=== PATIENT | male | born 1945 | race Caucasian/White ===

== ENCOUNTER 2024-12-13 10:41 | Emergency (ER) | payer MEDICARE, SELFPAY ==
--- OUTSIDE RECORDS SUMMARY | 2024-11-14 12:30 | XMS_ITS | Encounter Summary ---
Author Organization [facility] Address [address] [place] [address] Care Team Providers Care Metal Trim Erector Name Role Phone Sarthak Dominguez M.D. Primary Care Provider [phone] Reason for Visit * Reason Onset Date Comments Pre-visit Intake 11/14/2024 Encounter Details Date Type Department Care Team (Latest Contact Info) Description 11/14/2024 12:30 PM CDT Clinical Communication Virtual Review in [address] [address] Pre-visit Intake Social History Tobacco Use Types Packs/Day Years Used Date Smoking Tobacco: Former Cigarettes Passive Smoke Exposure: Past Smokeless Tobacco: Current Snuff Alcohol Use Standard Drinks/Week Comments Not Currently 0 (1 standard drink = 0.6 oz pur e alcohol) Humiliation, Afraid, Rape, and Kick questionnair e Answer Date Recorded Within the last year, have y ou been afraid of your partner or ex-partner? No 03/18/2021 Within the last year, have y ou been humiliated or emotionally abused in other ways by your partner or ex-partner? No Within the last year, have y ou been kicked, hit, slapped, or otherwise physically hurt by your partner or ex-partner? No 03/18/2021 Within the last year, have y ou been raped or forced to have any kind of sexual activity by your partner or ex-partner? No 03/18/2021 Hunger Vital Sign Answer Date Recorded Within the past 12 months, y ou worried that your food would run out before you got the money to buy more. Never true 03/18/19 22 Within the past 12 months, t he food you bought just didn't last and you didn't have money to get more. Never true 03/18/2021 PRAPARE - Transportation Answer Date Re corded In the past 12 months, has l ack of transportation kept you from medical appointments or from getting medications? No 03/02 In the past 12 months, has l ack of transportation kept you from meetings, work, or from getting things needed for daily living? No 03/18/2021 Housing Stability Vital Sign Answer Xander e Recorded In the last 12 months, was t here a time when you were not able to pay the mortgage or rent on time? No 03/18/2021 In the last 12 months, how many places have you lived? 1 03/18/2021 In the last 12 months, was t here a time when you did not have a steady place to sleep or slept in a detention (including now)? No 03/18/2021 Education Answer Date Recorded What is the highest level of school you have completed or the highest degree you have received? Associate degree: academic program 03/18/2021 Sex and Gender Information Value Date Recorded Sex Assigned at Not on file Legal Sex Male 2:51 AM LICENSING OFFICER Gender Identity Not on file Sexual Orientation Straight 10/31/2020 7: 00 AM CDT documented as of this encounter Plan of Treatment Upcoming Encounters Date Type Department Care Team (Latest Contact Info) Description 01/10/2025 8:45 AM LICENSING OFFICER Clinical Communication Virtual Review in [place], [place] [address] [place] [address] 01/11/2025 10:15 AM LICENSING OFFICER Procedure visit Department of Dermatology in [place], [place] [address] [place] [phone] Rebeca Sanchez M.D. [address] [place] [address] 01/11/2025 1:00 PM LICENSING OFFICER Office Visit Department of Dermatology in [place], [place] [address] [place] [address] [place] [phone] Eunice Arredondo APRN, C.N.P., M.S.N. [address] [place] [address] documented as of this encounter Visit Diagnoses Not on filedocumented in this encounter Care Teams Metal Trim Erector Relationship Specialty Start Date End Date Sarthak Dominguez M.D. [address] [place] [address] PCP - General Family Medicine 08/15/22 documented as of this encounter
--- OUTSIDE RECORDS SUMMARY | 2024-11-15 15:00 | XMS_ITS | Encounter Summary ---
Author Organization [facility] Address [address] [place] [address] Care Team Providers Care Category Planner Name Role Phone Sarthak Dominguez M.D. Primary Care Provider [phone] Encounter Details Date Type Department Care Team (Late st Contact Info) Description 11/15/2024 3:00 PM CDT Ancillary Procedure Department of Dermatology Social History Tobacco Use Types Packs/Day Years [...] place to sleep or slept in a fdc (including now)? No 03/18/2021 Education Answer Date Recorded What is the highest level of school you have completed or the highest degree you have received? Associate degree: academic program 03/18/2021 Sex and Gender Information Value Date Recorded Sex Assigned at Not on file Legal Sex Male 2:51 AM PHOTOLITHOGRAPHER Gender Identity Not on file Sexual Orientation Straight 10/31/2020 7: 00 AM CDT documented as of this encounter Plan of Treatment Upcoming Encounters Date Type Department Care Team (Latest Contact Info) Description 01/10/2025 8:45 AM PHOTOLITHOGRAPHER Clinical Communication Virtual Review in [place], [place] 200 [place] [address] 01/11/2025 10:15 AM PHOTOLITHOGRAPHER Procedure visit Department of Dermatology in [place], [place] [address] [place] [phone] Rebeca Sanchez M.D. [address] [place] [phone] 01/11/2025 1:00 PM PHOTOLITHOGRAPHER Office Visit Department of Dermatology in [address] [place] [phone] Eunice Arredondo APRN, C.N.P., M.S.N. [address] [place] [phone] documented as of this encounter Procedures Procedure Name Priority Date/Time Associated Diagnosis Comments DERMATOLOGY IMAGE EXAM Routine 11/15/2024 3:00 PM CDT documented in this encounter Results * Left Arm 523b-Dermatology Image Exam (11/15/2024 3:00 PM CDT) 11/15/2024 2:59 PM CDT Narrative IIMS - 11/15/2024 3:02 PM CDT This order has been created and auto-finalized to support the import of images acquired without order. The clinical documentation to support these images can be found on the encounter that produced images. us Provider Not In System IMG NON RAD IMAGING PROCE DURES Final Result [facility] NA documented in this encounter Visit Diagnoses Not on filedocumented in this encounter Care Teams Category Planner Relationship Specialty Start Date End Date Sarthak Dominguez M.D. [address] [place] [address] PCP - General Family Medicine 08/15/22 documented as of this encounter
--- OUTSIDE RECORDS SUMMARY | 2024-11-15 15:00 | XMS_ITS | Encounter Summary ---
Author Organization [facility] Address [address] [place] [address] Care Team Providers Care Multi Needle Machine Operator Name Role Phone Sarthak Dominguez M.D. Primary Care Provider [phone] Reason for Referral * Outpatient (Routine) - Authorized Specialty Diagnoses / Procedures Referred By Contac t Referred To Contact Dermatology Diagnoses Tumor Skin Uncertain Behavior Keratosis Actinic Eunice Arredondo APRN, C.N.P., M.S.N. [address] [place] [address] Phone: tel: fax: [facility] Referral ID Status Reason Start Date Expiration Date V isits Requested Visits Authorized [id number] Authorized 11/15/2024 05/17/2026 1 1 Scheduling Instructions FBSE Reason for Visit * Outpatient (Routine) - Closed Specialty Diagnoses / Procedures Referred By Contac t Referred To Contact Dermatology Diagnoses Lesion Skin Sarthak Dominguez M.D. [address] [place] [address] Phone: tel: fax: [facility] Referral ID Status Reason Start Date Expiration Date V isits Requested Visits Authorized [id number] Closed Specialty Services Required 08/16/2024 02/15/2026 1 1 Encounter Details Date Type Department Care Team (Latest Contact Info) Description 11/15/2024 3:00 PM CDT Comprehensive Visit Department of Dermatology in [place], [place] [address] [place] [address] Eunice Arredondo APRN, C.N.P., M.S.N. [address] [place] [address] Tumor Skin Uncertain Behavior (Primary Dx); Keratosis Actinic Social History Tobacco Use Types Packs/Day Years [...] place to sleep or slept in a assisted (including now)? No 03/18/2021 Education Answer Date Recorded What is the highest level of school you have completed or the highest degree you have received? Associate degree: academic program 03/18/2021 Sex and Gender Information Value Date Recorded Sex Assigned at Not on file Legal Sex Male 2:51 AM ARTIFICIAL CHERRY MAKER Gender Identity Not on file Sexual Orientation Straight 10/31/2020 7: 00 AM CDT documented as of this encounter Consult Notes * Eunice Arredondo, BARTOLO, C.N.P., M.S.N. - 11/15/2024 3:00 PM CDT SUBJECTIVE CHIEF COMPLAINT/REASON FOR VISIT Skin lesion Patient History Ramon Casanova is a pleasant 79 y.o. male who presents for evaluation of a cutaneous concern. 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 The patient reports having this lesion on his arm for the past couple of months. He reports that itis tender to touch. He denies any other cutaneous concerns. Medical History[1] OBJECTIVE PHYSICAL EXAMINATION General: Awake, alert, in no acute distress, and with appropriate affect. Skin: The following areas were examined: Left posterior elbow. On the left posterior elbow is a 1.3x 1.4 cm flesh-yellow colored nodule with central crust. On the face are red macules with overlyingadherent scale. There are no other skin lesions of concern in the areas examined. ASSESSMENT / PLAN #1 Skin tumor uncertain behavior, shave biopsy, left posterior elbow This is clinically significant for SCC vs. NMSC. Shave biopsy performed. Results will be communicated via the portal. CONSENT Discussed the risks, benefits, alternatives, and the necessity of other members of the healthcare team participating in the procedure. All questions answered and consent given. UNIVERSAL PROTOCOL Procedural pause conducted to verify: correct patient identity, procedure to be performed, and as applicable, correct side and site, correct patient position, and availability of implants, special equipment, or special requirements. PROCEDURE INFORMATION Shave biopsy. We explained the potential diagnosis and recommended that we obtain a biopsy. The risks and benefits of the procedure were discussed, and the patient consented to these procedures. Using 1% lidocainewith epinephrine for local anesthesia, a shave biopsy was obtained. Biopsy submitted to Dermatopathology for H&E. Special stains will be performed as indicated. The bleeding was well controlled with application of aluminum chloride. Dressing was applied, and wound care instructions were explained. Biopsy results and any further recommendations will be communicated to the patient by letter. Patient given pamphlet [id number]. #2 Actinic keratoses Actinic keratoses are pre-cancerous skin growths. Treatment with liquid nitrogen cryotherapy was performed. Number treated: 8 Location: face After explaining the procedure, discussing the associated risks, benefits, and alternatives, and obtaining verbal informed consent, the lesion(s) underwent treatment with liquid nitrogen cryotherapy in the standard fashion. Wound care was discussed. A return visit for reassessment is recommended should symptoms or changes develop related to this condition. PATIENT EDUCATION Ready to learn. No apparent learning barriers were identified. Learning preferences include listening. Explained diagnosis and treatment plan; patient/guardian of patient expressed understanding of the content. [1] Past Medical History: Diagnosis Date Abdominal Pain 11/01/2020 Cataract Degeneration Disc Cervical 10/26/2013 Diarrhea Hyperlipidemia Hypertension NOS Injury Rotator Cuff Initial 07/26/2010 Irritable Bowel Syndrome, Unspecified Malignant Neoplasm Of Face Squamous Cell 04/22/2016 Malignant Primary Neoplasm (Unknown Site) Unspecified (HCC) Basal cell carcinoma, squamous cell carcinoma Nicotine Dependence Unspecified 09/22/2002 Nodule Pulmonary Pain Shoulder Right 09/22/2002 Polyp Colon Psoriasis 02/10/2013 Thrombocytopenia documented in this encounter Plan of Treatment Upcoming Encounters Date Type Department Care Team (Latest Contact Info) Description 01/10/2025 8:45 AM ARTIFICIAL CHERRY MAKER Clinical Communication Virtual Review in [place], [place] 200 [place] [address] 01/11/2025 10:15 AM ARTIFICIAL CHERRY MAKER Procedure visit Department of Dermatology in [address] [phone] Rebeca Sanchez M.D. [address] [place] [address] 01/11/2025 1:00 PM ARTIFICIAL CHERRY MAKER Office Visit Department of Dermatology in [place], [place] [address] [place] [phone] Eunice Arredondo APRN, C.N.P., M.S.N. [address] [place] [address] Scheduled Referrals Name Type Priority Associated Diagnoses Order Schedule Dermatology office visit (clinic) Outpatient Referral Routine Tumor Skin Uncertain Behavior Keratosis Actinic Expected: 11/15/2024, Expires: 02/14/2026 documented as of this encounter Procedures Procedure Name Priority Date/Time Associated Diagnosis Comments DERMATOPATHOLOGY Routine 11/15/2024 3:00 PM CDT Tumor Skin Uncertain Behavior documented in this encounter Results * Dermatopathology (11/15/2024 3:00 PM CDT) 11/18/2024 9:20 AM CDT PDRM Report electronically signed by Caprice Morton M.D. 11/18/2024 9:20 AM CDT PDRM Gross Description Received in formalin labeled with the patient's name, medical record number, and left elbow-posterior is a 1.5 x 1.4 x 0.1 cm pale-tanskin shave biopsy. Encompassing nearly the entire skin surface is a 1.5 x 1.4 cm pale giq-nzcfc-eiau, raised, soft, slightly friable lesionwith ill-defined borders. Eccentrically located on the lesion is a 1.0 x 0.7 x 0.4 cm ezu-dexe-hyb, raised, firm, keratotic, crusted lesion withwell-circums cribed borders. The specimen is serially sectioned and submitted entirely in cassettes A1-A3. Grossed by ANNELISE. 11/18/2024 9:20 AM CDT PDRM Interpretation FINAL DIAGNOSIS A. 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 Digital imaging was used in the diagnostic assessment of this case. 11/18/2024 9:20 AM CDT PDRM Skin (Left Elbow - Posterior) 11/15/2024 3:00 PM CDT Eunice Arredondo APRN, C.N.P., M.S.N. LAB PATH DE RM ORDERABLES Final Result [facility] [address] [place] [address], [facility] PDRM [address] [email or web address] 200 [place] [address] documented in this encounter Visit Diagnoses Diagnosis Tumor Skin Uncertain Behavior- Primary Keratosis Actinic documented in this encounter Care Teams Multi Needle Machine Operator Relationship Specialty Start Date End Date Sarthak Dominguez M.D. [address] [place] [phone] PCP - General Family Medicine 08/15/22 documented as of this encounter
--- OUTSIDE RECORDS SUMMARY | 2024-12-12 14:00 | XMS_ITS | Encounter Summary ---
Author Organization [facility] Address [address] [place] [address] Care Team Providers Care Peoplesoft Hr Developer Name Role Phone Sarthak Dominguez M.D. Primary Care Provider Reason for Referral * Outpatient (Routine) - Authorized Specialty Diagnoses / Procedures Referred By Narcisa maya Referred To Contact Diagnoses Malignant Neoplasm Of Upper Arm Squamous Cell Carcinoma Left Procedures ENRIQUE Excision 1-2 sites Oliverio East M.D. [address] [place] [phone] Phone: tel: fax: [facility] Referral ID Status Reason Start Date Expiration Date V isits Requested Visits Authorized [id number] Authorized 12/12/2024 03/14/2026 1 1 Reason for Visit * Outpatient (Routine) - Closed Specialty Diagnoses / Procedures Referred By Narcisa maya Referred To Contact Diagnoses Malignant Neoplasm Of Upper Arm Squamous Cell Carcinoma Left Procedures ENRIQUE Excision 1-2 sites Eunice Arredondo APRN, C.N.P., M.S.N. [address] [place] [phone] Phone: tel: fax: [facility] Referral ID Status Reason Start Date Expiration Date Visits Re quested Visits Authorized [id number] Closed 11/18/2024 02/18/2026 1 1 Encounter Details Date Type Department Care Team (Latest Contact Info) Description 12/12/2024 2:00 PM CDT Procedure visit Department of Dermatology in [place], [place] 200 [place] [address] Oliverio East M.D. 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 No 03/18/2021 Education Answer Date Recorded What is the highest level of school you have completed or the highest degree you have received? Associate degree: academic program 03/18/2021 Sex and Gender Information Value Date Recorded Sex Assigned at Not on file Legal Sex Male 2:51 AM HAT FINISHER Gender Identity Not on file Sexual Orientation Straight 10/31/2020 7: 00 AM CDT documented as of this encounter Last Filed Vital Signs Vital Sign Reading Time Taken Comments Blood Pressure 219/81 12/12/2024 2:22 PM CDT Pulse 78 12/12/2024 2:22 PM CDT Temperature - - Respiratory Rate - - Oxygen Saturation - - Inhaled Oxygen Concentration - - Weight - - Height - - Body Mass Index - - documented in this encounter Plan of Treatment Upcoming Encounters Date Type Department Care Team (Latest Contact Info) Description 01/10/2025 8:45 AM HAT FINISHER Clinical Communication Virtual Review in [place], [place] 200 [place] [address] 01/11/2025 10:15 AM HAT FINISHER Procedure visit Department of Dermatology in [place], [place] [address] [place] [phone] Rebeca Sanchez M.D. [address] [place] [phone] 01/11/2025 1:00 PM HAT FINISHER Office Visit Department of Dermatology in [place], [place] [address] [place] [address] [place] [phone] Enuice Arredondo APRN, C.N.P., M.S.N. [address] [place] [phone] Scheduled Orders Name Type Priority Associated Diagnoses Orde r Schedule ENRIQUE Excision 1-2 sites Dermatology Routine Malignant Neoplasm Of Upper Arm Squamous Cell Carcinoma Left Expected: 01/11/2025, Expires: 03/14/2026 documented as of this encounter Visit Diagnoses Diagnosis Malignant Neoplasm Of Upper Arm Squamous Cell Carcinoma Left documented in this encounter Care Teams Peoplesoft Hr Developer Relationship Specialty Start Date End Date Sarthak Dominguez M.D. [address] [phone] PCP - General Family Medicine 08/15/22 documented as of this encounter
[2024-12-13 10:44] VITALS: BP 170/67; PULSE 64; RESP 18; TEMP 36.4; O2SAT 98; BMI 17.5
--- OUTSIDE RECORDS SUMMARY | 2024-12-13 10:45 | XMS_ITS | Encounter Summary ---
Author Organization [facility] Address [address] [place] [address]. [place] [address] Care Team Providers Care Solder Sprayer Name Role Phone Constantino Arredondo MD Primary Care Provider [phone] Constantino Arredondo MD Unavailable [phone] Constantino Arredondo MD Unavailable [phone] No Ref-Primary, Physician Primary Care Provider Encounter Details Date Type Department Care Team (Late st Contact Info) Description 05/05/2014 [facility] Medical Advice [address] [address] [place] [address] [place] [address] Social History Tobacco Use Types Packs/Day Years Used Date Smoking Tobacco: Former Cigarettes 1 40 0 04/02/1969 - 04/02/2009 Smokeless Tobacco: Never Alcohol Use Standard Drinks/Week Comments No 0 (1 standard drink = 0.6 oz pur e alcohol) Sex and Gender Information Value Date Recorded Sex Assigned at Not on file Legal Sex Male 3:44 AM SPORTS ACTIVITIES FOUL JUDGE Gender Identity Not on file Sexual Orientation Not on file 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
--- OUTSIDE RECORDS SUMMARY | 2024-12-13 10:45 | XMS_ITS | Clinical Summary ---
Author Organization [facility] Address [address] [place] [address] Care Team Providers Care An/Syq 13 Nav/C2 Operator Name Role Phone No Ref-Primary, Physician Primary Care Provider Allergies No known active allergies Medications omega 3 1000 MG CAPS Take 1 g by mouth daily 90 capsule 04/23/2015 Active Cholecalciferol (VITAMIN D) 2000 UNITS tablet Take 2,000 Units by mouth daily 100 tablet 3 04/23/2015 Active cyclobenzaprine (FLEXERIL) 10 MG tabletIndication s:Cervicalgia Take 1 tablet (10 mg) by mouth 3 times daily as needed for muscle spasms 90 tablet 5 04/22/2016 Active lisinopril (ZESTRIL) 5 MG tabletIndication s:Hypertension goal BP (blood pressure) < 140/90 TAKE 1 TABLET BY MOUTH EVERY DAY 90 tablet 09/27/2019 Active atorvastatin (LIPITOR) 10 MG tabletIndication s:Hyperlipidemia LDL goal <130 TAKE 1/2 TABLET BY MOUTH EVERY DAY 45 tablet 12/22/2019 Active Active Problems Problem Noted Date Diagnosed Date Thrombocytopenia 04/23/2016 SCC (squamous cell carcinoma), face 04/22/2016 Cervicalgia 04/26/2014 Hyperlipidemia LDL goal <130 04/26/2014 DJD (degenerative joint disease), cervical 10/26 Cervical stenosis of spinal canal 10/26/2013 Psoriasis 02/10/2013 Hypertension goal BP (blood pressure) < 140/90 0 07/26/2010 Rotator cuff injury 07/26/2010 Adenomatous polyp of colon 07/26/2010 Overview (02/10/2013): Tubular adenoma. Repeat colonoscopy due in 5 years, 09/2016 Resolved Problems Problem Noted Date Diagnosed Date Resolved Date Chronic pain 11/23/2015 04/24/2017 Overview (11/23/2015): Patient is followed by Constantino Arredondo MD for ongoing prescription of pain medication. All refills should be approved by this provider, or covering partner. Medication(s): [place] 10/325 Maximum quantity per month: 60 Clinic visit frequency required: Q 6 months Controlled substance agreement: Encounter-Level CSA - 10/26/13: Controlled Substance Agreement - Scan on 11/09/2013 10:13 AM : Clinics Controlled Medication Agreement 10-26-13 (below) Pain Clinic evaluation in the past: No DIRE Total Score(s): No flowsheet data found. Last [facility] website verification: done on 11/12/15 [email or web address] Knee pain 06/15/2013 06/15/2013 Rotator cuff (capsule) sprain 02/27/2011 06/09/2011 Other postprocedural status(V45.89) 02/27/2011 06/09/[address] 10/02/2010 04/24/2017 Overview (10/26/2013): Hydrocodone 10/325 mg #60 monthly Pain in joint, shoulder region 08/22/2010 10/02/2010 Rotator cuff (capsule) sprain 08/22/2010 10/02/2010 Hyponatremia 08/11/2010 10/26/2013 Advanced directives, counseling/discussion 07/26/2010 08/17/2023 Overview (08/02/2010): Advance Directive Problem List Overview: Name Relationship Phone Primary Health Care Agent Marah Morales [phone] Alternative Health Care Agent Discussed advance care planning with patient; information given to patient to review. 07/26/2010 08/01/10 Follow up to [facility] referral call placed. Patient would like to review document provided at visit, establish an agent and then will schedule facilitation if needed. Lexi Dias LPN/Advanced Healthcare Planning Bar Host Assessment & Plan (11/12/2015 8:14 AM CDT): Advance Care Planning 11/12/2015: ACP Review of Chart / Resources Provided: Reviewed chart for advance care plan. Ramon Casanova has no plan or code status on file. Discussed available resources and provided with information. Confirmed code status reflects current choices pending further ACP discussions. Confirmed/documented legally designated decision makers. Added by Laura Vaughn Pulmonary nodule 12/19/2009 04/23/2015 Overview (02/10/2013): Stable course - no further workup per Radiology unless clinical suspicion Mild major depression 07/06/20092015 Personal history of tobacco use, presenting hazards to [facility] 01/14/2006 08/11/2010 Encounters Date Type Department Care Team Description 10/21/2024 1:53 PM CDT - 10/21/2024 2:44 PM CDT Emergency [facility] Emergency Dept [address] [place] [address] Hung Brock, Skin lesion (Primary Dx) Discharge Disposition: Home or Self Care 10/21/2024 Travel from Last 3 Months Immunizations Immunization Administration Dates Next Due Influenza (High Dose) Trival ent,PF (Fluzone) 11/29/2017,11/12/2015,11/30/2014,2011,12/06/2010 Influenza (IIV3) PF 12/20/2012,01/01/2006 Pneumo Conj 13-V (2010&after) 04/26/2014 Pneumococcal 23 valent 10/10/2009 TD,PF 7+ (Tenivac) 09/10/2007 TDAP Vaccine (Boostrix) 01/05/2012 Zoster vaccine, live 12/06/2010 Family History Medical History Relation Comments Cancer Mother Pancreatic Relation Status Comments Father (Age 84) Mother (Age 62) pancreatic can cer Social History Tobacco Use Types Packs/Day Years Used Date Smoking Tobacco: Former Cigarettes 1 40 0 04/02/1969 - 04/02/2009 Smokeless Tobacco: Never Alcohol Use Standard Drinks/Week Comments No 0 (1 standard drink = 0.6 oz pur e alcohol) PHQ-2 Answer Date Recorded PHQ-2 Score 0 04/26/2018 Adolescent Education Answer Date Record ed Getting School Help Needed Not on file 12/15 Sex and Gender Information Value Date Recorded Sex Assigned at Not on file Legal Sex Male 3:44 AM JOB HONER Gender Identity Not on file Sexual Orientation Not on file 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 Not on file Not on file Last Filed Vital Signs Vital Sign Reading Time Taken Comments Blood Pressure 131/68 10/21/2024 11:43 AM CDT Pulse 60 10/21/2024 11:43 AM CDT Temperature 36.2 C (97.2 F) 10/21/2024 11:43 AM CDT Respiratory Rate 16 10/21/2024 11:43 AM CDT Oxygen Saturation 98% 10/21/2024 11:43 AM CDT Inhaled Oxygen Concentration - - Weight 48.6 kg (107 lb 2.3 oz) 10/21/2024 11:43 AM CDT Height 167.6 cm (5' 6) 10/21/2024 11:43 AM CDT Body Mass Index 17.29 10/21/2024 11:43 AM CDT Plan of Treatment Health Maintenance Due Date Last Done Comments ANNUAL REVIEW OF HM ORDERS 1945 CT COLONOGRAPHY 1945 sDNA (Cologuard) 1945 FIT 03/18/2012 03/18/2011 FLEX SIG 09/13/2017 09/13/2012 RSV VACCINE (1 - 1-dose 75+ series) 08/07/2018 FALL RISK ASSESSMENT 04/26/2019 04/26/2018, 04/23/2015, 04/26/2014, Additional history exists LIPID 04/26/2019 04/26/2018, 04/03, 04/22/2016, Additional history exists MEDICARE ANNUAL WELLNESS VISIT 04/26/2019 04/26/2018, 04/24/2017, 04/22/2016, Additional history exists BMP 02/01/2020 01/31/2019, 04/03, 11/25/2017, Additional history exists DTAP/TDAP/TD VACCINE (4 - Td or Tdap) 01/04/2022 01/05/2012, 09/10/2007, 02/20/1999 COLONOSCOPY 12/11/2023 12/10/2020, 11/30, 12/10/2020, Additional history exists COLORECTAL CANCER SCREENING 12/11/2023 PHQ-2 (once per calendar year) 2024 04/26/2018, 04/26/2018, 04/24/2017, Additional history exists COVID-19 VACCINE ( season) 2024 12/29/2022, 05/15/2020, 04/24/2020 INFLUENZA VACCINE (#1) 2024 , 12/02/2022, 10/22/2021, Additional history exists ADVANCE CARE PLANNING 08/16/2028 08/17/2023 , 11/12/2015, 07/26/2010, Additional history exists LUNG CANCER SCREENING Discontinued 03/17/2011 , 06/14/2010, 12/12/2009 PNEUMOCOCCAL VACCINE 50+ YEARS Completed 04/26/2014, 10/10/2009 ZOSTER VACCINE Completed 04/16/2021, 10/01, 12/06/2010 HPV VACCINE (No Doses Required) Completed MENINGITIS VACCINE Aged Out No longer eligible based on patient's age to complete this topic Procedures Procedure Name Priority Date/Time Associated Diagnosis Comments BASIC METABOLIC PANEL STAT 01/31/2019 11:22 AM JOB HONER LIPID REFLEX TO DIRECT LDL PANEL Routine 04/26/2018 9:51 AM JOB HONER Hyperlipidemia LDL goal <130 COLONOSCOPY - HIM SCAN 8 12:00 AM CDT FLEXIBLE SIGMOIDOSCOPY Routine 09/13/2012 FECAL COLORECTAL CANCER SCREEN FIT Routine 03/18/2011 10:00 AM JOB HONER Anemia CT CHEST W/O CONTRAST FOR NODULE Routine 03/17/2011 9:16 AM JOB HONER Pulmonary nodule from Last 3 Months or Most Recently Relevant to Health Maintenance Results * (ABNORMAL) Basic metabolic panel (01/31/2019 11:22 AM JOB HONER) Sodium 138 133 - 144 mmol/L 01/31/2019 11:38 AM JOB HONER [facility] Potassium 3.9 3.4 - 5.3 mmol/L 01/31/2019 11:38 AM JOB HONER [facility] Chloride 104 94 - 109 mmol/L 01/31/2019 11:38 AM [facility] Carbon Dioxide 26 20 - 32 mmol/L 01/31/2019 11:44 AM [facility] Anion Gap 8 3 - 14 mmol/L 01/31/2019 11:44 AM [facility] Glucose 75 70 - 99 mg/dL 01/31/2019 11:44 AM [facility] Urea Nitrogen 18 7 - 30 mg/dL 01/31/2019 11:44 AM [facility] Creatinine 1.21 0.66 - 1.25 mg/dL 01/31/2019 11:44 AM [facility] GFR Estimate 58(L) >60 mL/min/{1. 73_m2} 01/31/2019 11:44 AM [facility] Comment: Non GFR Calc Starting 02/16/2018, serum creatinine based estimated GFR (eGFR) will be calculated using the Chronic Kidney Disease Epidemiology Collaboration (CKD-EPI) equation. GFR Estimate If Black 67 >60 mL/min/{1. 73_m2} 01/31/2019 11:44 AM [facility] Comment: GFR Calc Starting 02/16/2018, serum creatinine based estimated GFR (eGFR) will be calculated using the Chronic Kidney Disease Epidemiology Collaboration (CKD-EPI) equation. Calcium 9.3 8.5 - 10.1 mg/dL 01/31/2019 11:44 AM [facility] Blood specimen (specimen) 01/31/2019 11:22 AM [facility] [email or web address]] 01/31/2019 11:27 AM JOB HONER us Ai Bryant MD LAB - BLOOD ORDERABLES Fi nal Result [facility] [address] [id number], [facility] [phone] * Lipid panel reflex to direct LDL Fasting (04/26/2018 9:51 AM JOB HONER) Cholesterol 177 <200 mg/dL 04/27/2018 8:45 PM [facility] Triglycerides 104 <150 mg/dL 04/27/2018 8:[address] [facility] Comment:Fasting specimen HDL Cholesterol 61 >39 mg/dL 9 8:50 PM JOB HONER [facility] LDL Cholesterol Calculated 95 <100 mg/dL 04/27/2018 8:50 PM JOB HONER [facility] Comment:Desirable: <100 mg/d l Non HDL Cholesterol 116 <130 mg/dL 04/27/2018 8:50 PM JOB HONER [facility] Blood specimen (specimen) 04/26/2018 9:51 AM JOB HONER 04/26/2018 9:52 AM JOB HONER us Constantino Arredondo MD LAB - BLOOD ORDERABLES Final Result [facility] [address] [place] [address] * COLONOSCOPY - HIM SCAN (05/15/2017 12:00 AM CDT) 05/15/2017 us Provider Outside PROCEDURES Final Result * FLEXIBLE SIGMOIDOSCOPY (09/13/2012) Pathologist [facility] flex us Robbie Velazquez MD PROCEDURES Final Result * Fecal colorectal cancer screen FIT (03/18/2011 10:00 AM JOB HONER) Pathologist [facility] Occult Blood Scn FIT Negative NEG [facility] Stool specimen (specimen) 03/18/2011 10:00 AM JOB HONER 03/18/2011 10:14 AM JOB HONER us Robbie Velazquez MD LAB - STOOLS ORDERABLE S Final Result [facility] [address] [place] [address] * CT Chest w/o contrast for nodule (03/17/2011 9:16 AM JOB HONER) Anatomical Region Laterality Modality Chest, SUBRAD CT BODY, UMP CT CHEST Computed Tomography 03/17/2011 9:16 AM JOB HONER Impressions 03/17/2011 11:[address] CHEST FOR NODULE Mar 17, 2011 9:16:00 AM HISTORY: Followup pulmonary nodule. COMPARISON: Chest CT 06/14/2010. TECHNIQUE: Axial images from the thoracic inlet to the lung bases are performed with additional coronal reformatted images. No contrast is utilized. FINDINGS: Chest: The indeterminate left upper lobe lung nodule appears stable on image 25 of series 3. This measures 0.4 cm on thin section imaging. No other indeterminate lung nodules are present. This is unchanged dating back to a chest CT performed 12/12/2009; therefore has been stable for greater than one year and is most likely benign. Extensive, partially calcified pleural plaques are again noted with a masslike density associated with a plaque at the medial right lung base. This is unchanged in size and is most consistent with rounded atelectasis. No pleural or pericardial fluid is present. Calcified granuloma is again noted in the anterior left lung base on image 44 of series 2. No enlarged axillary or intrathoracic lymph nodes are appreciated allowing for the noncontrast technique. Coronary artery calcification is present. The esophagus is within normal limits. Anterior left thyroid lobe nodule is present on image 7 of series 2 measuring 1.2 cm. This appears unchanged. Limited images upper abdomen are unremarkable allowing for the noncontrast technique. 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 No discrete kidney stones are evident. IMPRESSION: 1. No interval change in the left upper lobe indeterminate nodule. This has been stable for greater than one year and is most likely benign. Any further followup should be based on clinical suspicion. 2. Evidence of old granulomatous disease and previous asbestos exposure. Rounded atelectasis medial right lung base is unchanged. No enlarged lymph nodes. 3. Stable left thyroid lobe nodule. 4. 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 No discrete kidney stones are evident. Robbie Velazquez MD [facility] CT ORDERABLES Edit ed from Last 3 Months or Most Recently Relevant to Health Maintenance Insurance [employer] MEDICARE Care Teams An/Syq 13 Nav/C2 Operator Relationship Specialty Start Date End Date No Ref-Primary, Physician PCP - General 10/21/24
--- OUTSIDE RECORDS SUMMARY | 2024-12-13 10:45 | XMS_ITS | Encounter Summary ---
Author Organization [facility] Address [address] [place] [address]. [place] [address] Care Team Providers Care Early Childhood Coordinator Name Role Phone Constantino Arredondo MD Primary Care Provider + [phone] Constantino Arredondo MD Unavailable [phone] Constantino Arredondo MD Unavailable [phone] No Ref-Primary, Physician Primary Care Provider Encounter Details Date Type Department Care Team (Late st Contact Info) Description 11/07/2013 My[facility] Medical Advice [address] [address] [place] [address] [place], [place] [id number] Social History Tobacco Use Types Packs/Day Years Used Date Smoking Tobacco: Former Cigarettes Q uit: 04/02/2009 Smokeless Tobacco: Never Alcohol Use Standard Drinks/Week Comments No 0 (1 standard drink = 0.6 oz pur e alcohol) Sex and Gender Information Value Date Recorded Sex Assigned at Not on file Legal Sex Male 3:44 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 Gender Identity Not on file Sexual Orientation Not on file 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
--- OUTSIDE RECORDS SUMMARY | 2024-12-13 10:45 | XMS_ITS | Encounter Summary ---
Author Organization [facility] Health Address [address] [place] [address] Care Team Providers Care Double Backer Name Role Phone Unavailable Primary Care Provider Unavailabl e Prior Encounters Date Type Department Care Team Description 03/21/2019 Converted 13x Documents [facility] [address] [employer] [phone] <No scans attached> 03/21/2019 Converted CPS Chart Documents [facility] [address] [place] [address] <No scans attached> Plan of Treatment Not on file Procedures Procedure Name Priority Date/Time Associated Diagnosis Comments MISSED APPOINTMENT Routine 01/31/2009 1: 00 AM MST 4 PONTIC - PFM - POST Routine 10/19/2008 1:00 AM MDT 3 PONTIC - PFM - POST Routine 10/19/2008 1:00 AM MDT 5 RETAINER CROWN - PFM - POST Routine 10/19/2008 1:00 AM MDT 2 RETAINER CROWN - PFM - POST Routine 10/19/2008 1:00 AM MDT 15 PREFABRICATED STAINLESS STEEL CROWN - PERMANENT TOOTH Routine 10/19/2008 1:00 AM MDT 18 CROWN - FULL CAST HIGH BOSTON METAL Routine 10/19/2008 1:00 AM MDT 15 ENDODONTIC THERAPY, MOLAR TOOTH (EXCLUDING FINAL SIKH) Routine 10/19/2008 1:00 AM MDT 12 ENDODONTIC THERAPY, PREMOLAR TOOTH (EXCLUDING FINAL SIKH) Routine 10/19/2008 1:00 AM MDT 14 CROWN PFM POST Routine 10/19/2008 1:0 0 AM MDT 13 CROWN PFM POST Routine 10/19/2008 1:0 0 AM MDT 12 CROWN PFM POST Routine 10/19/2008 1:0 0 AM MDT 29 CROWN PFM POST Routine 10/19/2008 1:0 0 AM MDT 19 CROWN PFM POST Routine 10/19/2008 1:0 0 AM MDT 10 CROWN PFM ANT Routine 10/19/2008 1:00 AM MDT 9 CROWN PFM ANT Routine 10/19/2008 1:00 AM MDT 8 CROWN PFM ANT Routine 10/19/2008 1:00 AM MDT 7 CROWN PFM ANT Routine 10/19/2008 1:00 AM MDT COMPREHENSIVE ORAL EVALUATION - NEW OR ESTABLISHED PATIENT Routine 10/19/2008 1:00 AM MDT UR PERIODONTAL SCALING AND ROOT PLANING - FOUR OR MORE TEETH PER QUADRANT Routine 10/19/2008 1:00 AM MDT UL PERIODONTAL SCALING AND ROOT PLANING - FOUR OR MORE TEETH PER QUADRANT Routine 10/19/2008 1:00 AM MDT LR PERIODONTAL SCALING AND ROOT PLANING - FOUR OR MORE TEETH PER QUADRANT Routine 10/19/2008 1:00 AM MDT LL PERIODONTAL SCALING AND ROOT PLANING - FOUR OR MORE TEETH PER QUADRANT Routine 10/19/2008 1:00 AM MDT 1 M ARESTIN Routine 10/19/2008 1:00 AM MDT IPE Routine 10/19/2008 1:00 AM MDT INTRAORAL PHOTO Routine 10/19/2008 1:00 AM MDT INTRAORAL PHOTO Routine 10/19/2008 1:00 AM MDT INTRAORAL PHOTO Routine 10/19/2008 1:00 AM MDT INTRAORAL PHOTO Routine 10/19/2008 1:00 AM MDT INTRAORAL PHOTO Routine 10/19/2008 1:00 AM MDT INTRAORAL PHOTO Routine 10/19/2008 1:00 AM MDT INTRAORAL PHOTO Routine 10/19/2008 1:00 AM MDT INTRAORAL PHOTO Routine 10/19/2008 1:00 AM MDT INTRAORAL PHOTO Routine 10/19/2008 1:00 AM MDT INTRAORAL PHOTO Routine 10/19/2008 1:00 AM MDT 20 MOD COMPOSITE FILLING Routine 009 1:00 AM MDT 30 MO COMPOSITE FILLING Routine 10/20/19 09 1:00 AM MDT 21 DO COMPOSITE FILLING Routine 10/20/19 09 1:00 AM MDT 31 O COMPOSITE FILLING Routine 9 1:00 AM MDT Visit Diagnoses Not on file
--- OUTSIDE RECORDS SUMMARY | 2024-12-13 10:45 | XMS_ITS | Encounter Summary ---
Author Organization [facility] Address [address] [place] [address] Care Team Providers Care Welt Stitch Cleaner Name Role Phone Sarthak Dominguez M.D. 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 [address] [place] [phone] Phone: tel: fax: [facility] Referral ID Status Reason Start Date Expiration Date Visits Re quested Visits Authorized [id number] Closed 11/18/2024 02/18/2026 1 1 Encounter Details Date Type Department Care Team (Late st Contact Info) Description 11/18/2024 Orders Only Department of Dermatology in [place], [place] [address] [place] [phone] Eunice Arredondo APRN, C.N.P., M.S.N. 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 No 03/18/2021 Education Answer Date Recorded What is the highest level of school you have completed or the highest degree you have received? 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 [address] [place] [phone] 01/11/2025 1:00 PM LIVESTOCK YARD SUPERVISOR Office Visit Department of Dermatology in [place], [place] [address] [facility] [facility] [facility] [address] [place] [phone] Eunice Arredondo, BARTOLO, C.N.P., M.S.N. 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 [address] [place] [address] PCP - General Family Medicine 08/15/22 documented as of this encounter
--- OUTSIDE RECORDS SUMMARY | 2024-12-13 10:45 | XMS_ITS | Clinical Summary ---
Author Organization [facility] Health Address [address] [place] [address] Care Team Providers Care Lead Janitor Name Role Phone Unavailable Primary Care Provider Unavailabl e Social History Tobacco Use Types Packs/Day Years Used Date Smoking Tobacco: Never Assessed Sex and Gender Information Value Date Recorded Sex Assigned at Not on file Legal Sex Male 5:23 AM PST Gender Identity Not on file Sexual Orientation Not on file Plan of Treatment Not on file
--- OUTSIDE RECORDS SUMMARY | 2024-12-13 10:45 | XMS_ITS | Encounter Summary ---
Author Organization [facility] Address [address] [place] [address] Care Team Providers Care Parts Clerk Name Role Phone Sarthak Dominguez M.D. Primary Care Provider [phone] Encounter Details Date Type Department Care Team (Late st Contact Info) Description 11/18/2024 Results Follow-Up Department of Dermatology in [place], [place] [address] [place] [address] [place] [address] Eunice Arredondo, BARTOLO, C.N.P., M.S.N. [address] [place] [phone] Dermatopathology Social History Tobacco Use Types Packs/Day Years [...] place to sleep or slept in a penitentiary (including now)? No 03/18/2021 Education Answer Date Recorded What is the highest level of school you have completed or the highest degree you have received? Associate degree: academic program 03/18/2021 Sex and Gender Information Value Date Recorded Sex Assigned at Not on file Legal Sex Male 2:51 AM SPORTSPERSONS Gender Identity Not on file Sexual Orientation Straight 10/31/2020 7: 00 AM CDT documented as of this encounter Plan of Treatment Upcoming Encounters Date Type Department Care Team (Latest Contact Info) Description 01/10/2025 8:45 AM SPORTSPERSONS Clinical Communication Virtual Review in [place], [place] [address] [place] [address] 01/11/2025 10:15 AM SPORTSPERSONS Procedure visit Department of Dermatology in [place], [place] [address] [place] [phone] Rebeca Sanchez M.D. [address] [place] [phone] 01/11/2025 1:00 PM SPORTSPERSONS Office Visit Department of Dermatology in [address] [place] [address] Eunice Arredondo APRN, C.N.P., M.S.N. [address] [place] [address] documented as of this encounter Visit Diagnoses Not on filedocumented in this encounter Care Teams Parts Clerk Relationship Specialty Start Date End Date Sarthak Dominguez M.D. [address] [place] [address] PCP - General Family Medicine 08/15/22 documented as of this encounter
--- OUTSIDE RECORDS SUMMARY | 2024-12-13 10:45 | XMS_ITS | Encounter Summary ---
Author Organization [facility] Address [address] [place] [address] Care Team Providers Care Snow Removing Supervisor Name Role Phone Robbie Velazquez MD Primary Care Provider Constantino Arredondo MD Primary Care Provider + [phone] Constantino Arredondo MD Unavailable [phone] Constantino Arredondo MD Unavailable [phone] No Ref-Primary, Physician Primary Care Provider Encounter Details Date Type Department Care Team (Late st Contact Info) Description 05/17/2013 MyC Medical Advice [address] [address] Brisa Adams Social History Tobacco Use Types Packs/Day Years Used Date Smoking Tobacco: Former Cigarettes Q uit: 04/02/2009 Smokeless Tobacco: Never Alcohol Use Standard Drinks/Week Comments No 0 (1 standard drink = 0.6 oz pur e alcohol) Sex and Gender Information Value Date Recorded Sex Assigned at Not on file Legal Sex Male 3:44 AM PROCESS ENG Gender Identity Not on file Sexual Orientation Not on file 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 Not on file Not on file documented as of this encounter Plan of Treatment Not on file documented as of this encounter Visit Diagnoses Not on filedocumented in this encounter Care Teams Snow Removing Supervisor Relationship Specialty Start Date End Date Robbie Velazquez MD PCP - General Family Practice 07/26/10 10/25/13 Constantino Arredondo MD PCP - General Family Practice 10/26/13 12/29/21 [place] [address] [address] [facility] [place] [address] PCP - Assigned PCP 11/06/13 05/04/18 No Ref-Primary, Physician PCP - General 10/21/24 [place] [address] [place] [address] Assigned PCP 11/06/13 07/20/21 documented as of this encounter
--- OUTSIDE RECORDS SUMMARY | 2024-12-13 10:45 | XMS_ITS | Clinical Summary ---
Author Organization [facility] Address [address] [place] [address] Care Team Providers Care Policy Manager Name Role Phone Sarthak Dominguez M.D. Primary Care Provider [phone] Source Comments Patient records contain information from all sites at [facility]. For routine questions regarding patient records, call [phone] during business hours, M-F 8:00 AM - 5:00 PM Central Time. Record requests for emergency care only can be directed to [phone] at any time.[facility] Allergies No known active allergies Medications cholecalciferol (VITAMIN D3) 50 mcg (2,000 Unit) tablet Take 2,000 Units by mouth daily. 6 Active lisinopriL 10 mg tablet TAKE 1 TABLET BY MOUTH EVERY DAY 90 tablet 3 5 Active atorvastatin (Lipitor) 20 mg tabletIndication s:Hypertensive Chronic Kidney Disease With Stage 1 Through Stage 4 Chronic Kidney Disease, Or Unspecified Chronic Kidney Disease TAKE 1 TABLET BY MOUTH EVERY DAY 90 tablet 3 5 Active polyethylene glycol-electroly lola (Golytely) 236-22.74-6.74 -5.86 gram solution Take first portion of the prep at 4pm the evening before and start second portion 3 to 6 hours before and finish 2 hours prior to report time. 4000 mL 5 Active Additional Information Patient taking differently: oral Once, Take first portion of the prep at 4pm the evening before and start second portion 3 to 6 hours before and finish 2 hours prior to report time.ON HOLD, Reported on 11/14/2024 fluocinonide (Lidex) 0.05 % ointment Apply 1 Application topically 2 (two) times a day as needed for rash. Apply twice daily to psoriasis on elbows Thu-Th. Can apply under wet wrap at night. 60 g 2 5 Active tacrolimus (Protopic) 0.1 % ointment Apply to psoriasis on the groin twice daily as needed. 60 g 3 5 Active Hospital, Clinic, or Other Facility Administered Medication Ordered Dose Route Frequency Start Date End Date Status hylan g-f 20 injection 48 mg (SYNVISC-ONE)Indications:Prim britany Osteoarthritis Knee Left 48 mg IAtc Once 06/18/2022 Active Active Problems Problem Noted Date Diagnosed Date Chronic Kidney Disease (CKD) , Stage 3a Glomerular Filtration Rate (GFR) 45 To 59 08/16/2024 Assessment & Plan (08/16/2024 3:17 PM CDT): Blood pressure fairly controlled, kidney function with decreased EGFR chronic kidney disease stage IIIA, continue monitor lab. Continue lisinopril 10 mg daily. Anemia 08/16/2024 Assessment & Plan (08/16/2024 3:17 PM CDT): Mild anemia with slightly low hemoglobin, likely due to age-related changes and chronic kidney disease stage 3. No symptoms reported. - Order CBC, comprehensive metabolic panel, and lipid panel. Stenosis Aortic Valve Acquired 07/01/2022 Assessment & Plan (08/01/2022 9:40 AM CDT): ECHO done in 2021, repeat in 3-5 years recommended. Smoking Tobacco Use Personal History 02/19/2020 Polyp Colon Personal History, Unspecified Type 0 05/19/2017 Hyperlipidemia 04/26/2014 Assessment & Plan (08/16/2024 3:17 PM CDT): On atorvastatin for cholesterol management. 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 Hypertensive Chronic Kidney Disease With Stage 1 Through Stage 4 Chronic Kidney Disease, Or Unspecified Chronic Kidney Disease 07/26/2010 Assessment & Plan (08/16/2024 3:17 PM CDT): Blood pressure fairly controlled, kidney function with decreased EGFR chronic kidney disease stage IIIA, continue monitor lab. Continue lisinopril 10 mg daily. Resolved Problems Problem Noted Date Diagnosed Date Resolved Date Sinusitis 11/17/2022 07/30/2023 Malignant Neoplasm Of Left Upper Limb 07/01/2022 07/01/2022 Abdominal Pain 11/01/2020 08/01/2022 Diarrhea 11/01/2020 08/01/2022 Benign Neoplasm Descending Colon 05/19/2017 07/30/2023 Thrombocytopenia 04/23/2016 08/16/2024 Assessment & Plan (08/16/2024 3:17 PM CDT): Resolved. Malignant Neoplasm Of Face Squamous Cell 04/22/2016 08/01/2022 Pain Cervical 04/26/2014 08/01/2022 Polyp Colon Adenomatous 07/26/201007/02 Overview (02/19/2020): Tubular adenoma. Repeat colonoscopy due in 5 years, 09/2016 Injury Rotator Cuff Initial 07/26/2010 08/01/2022 Nicotine Dependence Unspecified 09/22/2002 08/01/2022 Pain Shoulder Right 09/22/2002 08/02/19 23 Encounters Date Type Department Care Team Description 12/12/2024 2:00 PM CDT Procedure visit Department of Dermatology in [place], [place] [address] [place] [address] Oliverio East M.D. 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 Dermatopathology 11/15/2024 3:00 PM CDT Ancillary Procedure Department of Dermatology 11/15/2024 3:00 PM CDT Comprehensive Visit Department of Dermatology in [address] [place] [address] Eunice Arredondo APRN, C.Serafin., M.S.N. Tumor Skin Uncertain Behavior (Primary Dx); Keratosis Actinic 11/14/2024 12:30 PM CDT Clinical Communication Virtual Review in [place], [place] [address] [place] [phone] Pre-visit Intake from Last 3 Months Immunizations Immunization Administration Dates Next Due HZV (ZOSTAVAX) 12/06/2010 Influenza TIV (IM) 12/20/2012, 6,01/03/2003,1999 Influenza high dose QV(65 ye ars or older) (PF) 12/02/2022,10/22/2021,10/22/2020,2019 Influenza, Unspecified 02/14/2000 PCV13 04/26/2014 PPSV23 10/10/2009 RZV (SHINGRIX) 04/16/2021,10/22/2020 SARS-COV-2 (COVID-19) - MODE RNA (12 YEARS AND OLDER) Fall Seasonal 12/07/2023,12/29/2022 SARS-COV-2 (COVID-19) - PFIZ ER (Discontinued)(12 years or older) 05/15/2020,04/24/2020 Td Preservative Free (TENIVA C, DECAVAC) 09/10/2007 Td, (Adult) Unspecified 02/20/1999 Tdap 01/05/2012 influenza trivalent high dos e (HD)(PF) 12/07/2023,11/07/2018,11/29/2017,2016,11/12/2015,11/30/2014,12/13/2011,1 Family History Medical History Relation Name Comments No Known Problems Daughter 1 No Known Problems Daughter 2 Heart failure Father Pancreatic cancer Mother Heart attack Sister Relation Name Status Comments Daughter 1 Alive Daughter 2 Alive Father Mother Sister Social History Tobacco Use Types Packs/Day Years [...] place to sleep or slept in a usp (including now)? No 03/18/2021 Education Answer Date Recorded What is the highest level of school you have completed or the highest degree you have received? 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 Gender Identity Not on file Sexual Orientation Straight 10/31/2020 7: 00 AM CDT Last Filed Vital Signs Vital Sign Reading Time Taken Comments Blood Pressure 219/81 12/12/2024 2:22 PM CDT Pulse 78 12/12/2024 2:22 PM CDT Temperature 36.3 C (97.3 F) 08/16/2024 2:08 PM CDT Respiratory Rate 19 08/16/2024 2:08 PM CDT Oxygen Saturation 99% 08/16/2024 2:08 PM CDT Inhaled Oxygen Concentration - - Weight 49.9 kg (110 lb) 08/16/2024 2:08 PM CDT Height 163 cm (5' 4.17) 07/30/2023 9:59 AM CDT Body Mass Index 18.78 07/30/2023 9:59 AM CDT Plan of Treatment Upcoming Encounters Date Type Department Care Team (Latest Contact Info) Description 01/10/2025 8:45 AM NUCLEAR ENGINEERING TECHNICIAN Clinical Communication Virtual Review in [place], [place] 200 [place] [address] 01/11/2025 10:15 AM NUCLEAR ENGINEERING TECHNICIAN Procedure visit Department of Dermatology in [place], [place] [address] [place] [phone] Rebeca Sanchez M.D. [address] [place] [phone] 01/11/2025 1:00 PM NUCLEAR ENGINEERING TECHNICIAN Office Visit Department of Dermatology in [place], [place] [address] [address] Eunice Arredondo APRN, C.N.P., M.S.N. [address] [place] [phone] Health Maintenance Due Date Last Done Comments Visit: Medicare Annual Wellness 1945 RSV vaccine - (32-36 weeks) or 50+ years (1 - 1-dose 75+ series) 08/07/2018 DTaP,Tdap,and Td Vaccines (2 - Td or Tdap) 01/04/2022 01/05/2012, 09/10/2007, 02/20/1999 Fall Risk Screen (Annual) 03/02/2024 COVID-19 Vaccine (2024- season) 2024 12/07/2023, 12/29/2022, 06/30/2022, Additional history exists Influenza Vaccine (#1) 2024 , 12/02/2022, 10/22/2021, Additional history exists Office Visit for Blood Pressure Check / Re-check 11/16/2024 08/16/2024, 05/14/2021 Creatinine Level (Kidney Function Test) 08/16/2025 08/16/2024, 08/13/2023, 07/01/2022, Additional history exists Potassium Level 08/16/2025 08/16/2024, 07/31, 07/01/2022, Additional history exists Sodium Level 08/16/2025 08/16/2024, 07/31, 07/01/2022, Additional history exists Tobacco Cessation counseling 08/16/2025 08/16/2024 Visit: Chronic Disease, age 18+ 08/16/2025 08/16/2024 Pneumococcal vaccine (50+ years) Completed 04/26/2014, 10/10/2009 Colonoscopy Discontinued 12/10/2020 Colorectal Cancer Surveillance Discontinued Zoster Vaccines Completed 04/16/2021, 10/01, 12/06/2010 Depression Screening (Annual PHQ-2) Completed 08/16/2024, 08/16/2024 CT Colonography Discontinued Cologuard Discontinued IPV Vaccines Aged Out No longer eligi ble based on patient's age to complete this topic Procedures Procedure Name Priority Date/Time Associated Diagnosis Comments DERMATOPATHOLOGY Routine 11/15/2024 3:00 PM CDT Tumor Skin Uncertain Behavior DERMATOLOGY IMAGE EXAM Routine 3:00 PM CDT BASIC METABOLIC PANEL, S/P Routine 08/16/2024 3:14 PM CDT Monitoring For Therapeutic Drug Therapy COLONOSCOPY Routine 12/10/2020 2:45 PM CDT Abdominal Pain Bowel Habit Change Diarrhea from Last 3 Months or Most Recently Relevant to Health Maintenance Results * Left Arm 523b-Dermatology Image Exam [...] NON RAD IMAGING PROCE DURES Final Result IITN NA * Dermatopathology (11/15/2024 3:00 PM CDT) 11/18/2024 9:20 AM CDT PDRM Report electronically signed by Caprice Morton M.D. 11/18/2024 9:20 AM CDT PDRM Gross Description Received in formalin labeled with the patient's name, medical record number, and left elbow-posterior is a 1.5 x 1.4 x 0.1 cm pale-tanskin shave biopsy. Encompassing nearly the entire skin surface is a 1.5 x 1.4 cm pale [id number], raised, soft, slightly friable lesionwith ill-defined borders. Eccentrically located on the lesion is a 1.0 x 0.7 x 0.4 cm [id number], raised, firm, keratotic, crusted lesion withwell-circums cribed [...] LAB PATH DE RM ORDERABLES Final Result [facility] [address] [place] [address], [facility] PDRM [address] [place] [address] * (ABNORMAL) Basic Metabolic Panel (08/16/2024 3:14 PM CDT) Potassium, P 4.2 3.6 - 5.2 mmol/L 08/16/2024 7:14 PM CDT NPRG Sodium, P 137 135 - 145 mmol/L 08/16/2024 7:14 PM CDT NPRG Chloride, P 100 98 - 107 mmol/L 08/16/2024 7:14 PM CDT NPRG Bicarbonate, P 25 22 - 29 mmol/L 08/16/2024 7:14 PM CDT NPRG Anion Gap, P 12 7 - 15 08/16/2024 7:14 PM CDT NPRG BUN (Blood Urea Nitrogen), P 18 8 - 24 mg/dL 08/16/2024 7:14 PM CDT NPRG Creatinine 1.49(H) 0.74 - 1.35 mg/dL 08/16/2024 7:14 PM CDT NPRG Estimated GFR (eGFR) 47(L) >=60 mL/min/BSA 08/16/2024 7:14 PM CDT NPRG Comment: Estimated GFR calculated using the 2020 CKD_EPI creatinine equation. Calcium, Total, P 9.9 8.8 - 10.2 mg/dL 08/16/2024 7:14 PM CDT NPRG Glucose, P 83 70 - 140 mg/dL 08/16/2024 7:14 PM CDT NPRG Blood (Blood, Venous) 08/16/2024 3:14 PM CDT 08/16/2024 6:53 PM CDT us Sarthak Dominguez M.D. LAB BLOOD ADD-ON Final Result [facility] [address] [place] [address], [facility] [address] [place] [address] * Colonoscopy (12/10/2020 2:45 PM CDT) Anatomical Region Laterality Modality Other 12/10/2020 2:45 PM CDT Impressions 12/10/2020 3:27 PM CDT Post-op Diagnoses: - One 10 mm polyp in the transverse colon, removed with a hot snare. Resected and retrieved. - Redundant colon. - The examined portion of the ileum was normal. Narrative 12/10/2020 3:27 PM CDT [facility] 9 GI GI Patient Name: Ramon Casanova Date of : 1945 Age: 75 Gender: Male Procedure Date: 12/10/2020 Procedure: Colonoscopy Providers: Earnest Abdul MD Referring Provider: Cinthya Perez MD Pre-op Diagnoses: Clinically significant diarrhea of unexplained origin Recommendation: - Discharge patient to home (ambulatory). - Await pathology results. - Return to referring physician at the next available appointment. - Follow up recommendations for patients with polyps identified during colonoscopy are impacted by several factors including polyp characteristics (size, number and histology), adequacy of colonic preparation and pertinent family history. For [facility] providers, detailed recommendations are available as an AskMayoExpert Care Process Model: <[email or web address] There may be some circumstances, specifically those patients with a personal or family history of significant colorectal neoplasms where these guidelines may not apply. Consider consultation in Gastroenterology for all other polyp findings or for patients who are not at average risk. Findings: The perianal and digital rectal examinations were normal. A 10 mm polyp was found in the transverse colon. The polyp was pedunculated. The polyp was removed with a hot snare. Resection and retrieval were complete. Estimated blood loss: none. The colon (entire examined portion) was moderately redundant. Biopsies for histology were taken with a cold forceps from the entire colon for evaluation of microscopic colitis. Estimated blood loss was minimal. The terminal ileum appeared normal. The exam was otherwise without abnormality on direct and retroflexion views. Procedural Details: The patient was seen, evaluated, history reviewed, airway and heart-lung exams were performed by licensed provider and were satisfactory for planned level of sedation care. The risks, benefits and alternatives for the procedure and sedation were discussed and informed consent was obtained. A procedural pause was conducted in the presence of assisting personnel to verify the correct patient identity and procedure to be performed. Throughout the procedure, the patient's blood pressure, pulse, and oxygen saturations were monitored continuously. The Colonoscope was introduced under direct vision through the anus and advanced to the terminal ileum, with identification of the appendiceal orifice and IC valve. The colonoscopy was performed without difficulty. The patient tolerated the procedure well. The quality of the bowel preparation was good. The quality of the bowel preparation was evaluated using the BBPS ([place] Bowel Preparation Scale) with scores of: Right Colon = 3, Transverse Colon = 3 and Left Colon = 3 (entire mucosa seen well with no residual staining, small fragments of stool or opaque liquid). The total BBPS score equals 9. Estimated Blood Loss: Estimated blood loss was minimal. Complications: No immediate complications. Sedation: Moderate (conscious) sedation was administered by the endoscopy nurse and supervised by the endoscopist. The following parameters were monitored: oxygen saturation, heart rate, blood pressure, and response to care. Total physician intraservice time was 26 minutes. Attending Participation: I personally performed the entire procedure. Earnest Abdul MD 12/10/2020 3:26:25 PM This report has been signed electronically. Number of Addenda: 0 us Cinthya Perez M.D., M.S. GI PROCEDURE ORDER [place] Final Result from Last 3 Months or Most Recently Relevant to Health Maintenance Insurance [facility] Member Subscriber Plan / Payer (Ef fective 2019-Present) Name:Ramon Casanova Relation to Subscriber:Self Name:Ramon Casanova Payer ID:[id number] ([facility]) _[id number] Type:HMO Address: [place] [id number] Advance Directives For more information, please contact: [phone] * Full Code (Latest Code Status on File) Date Activated Date Inactivated Comments 07/15/2022 12:43 PM 07/15/2022 4:01 PM Question Answer Comments Full Code: Discussed Care Teams Policy Manager Relationship Specialty Start Date End Date Sarthak Dominguez M.D. [facility] [place] [address] PCP - General Family Medicine 08/15/22
--- OUTSIDE RECORDS SUMMARY | 2024-12-13 10:45 | XMS_ITS | Encounter Summary ---
Author Organization [facility] Address [address] [place] [address]. [place] [address] Care Team Providers Care Fire Warden Name Role Phone Constantino Arredondo MD Primary Care Provider + [phone] Constantino Arredondo MD Unavailable [phone] Constantino Arredondo MD Unavailable [phone] No Ref-Primary, Physician Primary Care Provider Encounter Details Date Type Department Care Team (Late st Contact Info) Description 04/28/2014 MyC Medical Advice [address] [address] [place] [address] [place], [place] [id number] Social History Tobacco Use Types Packs/Day Years Used Date Smoking Tobacco: Former Cigarettes 1 40 0 04/02/1969 - 04/02/2009 Smokeless Tobacco: Never Alcohol Use Standard Drinks/Week Comments No 0 (1 standard drink = 0.6 oz pur e alcohol) Sex and Gender Information Value Date Recorded Sex Assigned at Not on file 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 Gender Identity Not on file Sexual Orientation Not on file 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
--- OUTSIDE RECORDS SUMMARY | 2024-12-13 10:45 | XMS_ITS | Encounter Summary ---
Author Organization [facility] Address [address] [place] [address] Care Team Providers Care Jackaroo Name Role Phone Constantino Arredondo MD Primary Care Provider + [phone] Constantino Arredondo MD Unavailable [phone] Constantino Arredondo MD Unavailable [phone] No Ref-Primary, Physician Primary Care Provider Encounter Details Date Type Department Care Team (Late st Contact Info) Description 03/03/2014 MyC Medical Advice [address] [address] Siri Harris APRN LAPIDARIST [address] [place] [address] [address] [place] [address] Social History Tobacco Use Types Packs/Day Years Used Date Smoking Tobacco: Former Cigarettes Q uit: 04/02/2009 Smokeless Tobacco: Never Alcohol Use Standard Drinks/Week Comments No 0 (1 standard drink = 0.6 oz pur e alcohol) Sex and Gender Information Value Date Recorded Sex Assigned at Not on file 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 Gender Identity Not on file Sexual Orientation Not on file 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
--- OUTSIDE RECORDS SUMMARY | 2024-12-13 10:45 | XMS_ITS | Encounter Summary ---
Author Organization [facility] Address [address] [place] [address] Care Team Providers Care Orthotist Prosthetist Name Role Phone Constantino Arredondo MD Primary Care Provider + [phone] Constantino Arredondo MD Unavailable [phone] Constantino Arredondo MD Unavailable [phone] No Ref-Primary, Physician Primary Care Provider Reason for Visit * Reason Onset Date Comments Refill Request 09/11/2017 lisinopril (PRIN IVIL/ZESTRIL) 5 MG tablet Encounter Details Date Type Department Care Team (Late st Contact Info) Description 09/11/[address] [address] [place] [address] [place] [address] Refill Request (lisinopril (PRINIVIL/ZESTRIL) 5 MG tablet) Social History Tobacco Use Types Packs/Day Years Used Date Smoking Tobacco: Former Cigarettes 1 40 0 04/02/1969 - 04/02/2009 Smokeless Tobacco: Never Alcohol Use Standard Drinks/Week Comments No 0 (1 standard drink = 0.6 oz pur e alcohol) Sex and Gender Information Value Date Recorded Sex Assigned at Not on file 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 Pt is aware needs BP check but he was not able to schedule at this time. Advised would send 1 X fill and needs to call to schedule nurse only BP check Monica Reis RN * Telephone Encounter - Navi Daley - 09/11/2017 12:10 PM CDT Requested Prescriptions Pending Prescriptions Disp Refills ??? lisinopril (PRINIVIL/ZESTRIL) 5 MG tablet [Pharmacy Med Name: LISINOPRIL 5 MG TABLET] 30 tablet0 Last Written Prescription Date: 08/05/2017 Last Fill Quantity: 30 tablet, # refills: 0 Last office visit: 04/24/2017 with prescribing provider: 04/24/2017 Future Office Visit: Sig: TAKE 1 TABLET BY MOUTH EVERY DAY RADHA Inhibitors (Including Combos) Protocol Failed 09/11/2017 11:59 AM Failed - Blood pressure under 140/90 in past 12 months BP Readings from Last 3 Encounters: 08/03/17 (!) 144/94 06/23/17 104/56 04/24/17 106/68 Failed - Normal serum creatinine on file in past 12 months Recent Labs Lab Test 06/23/17 0751 CR 1.27* Passed - Recent (12 mo) or future (30 days) visit within the authorizing provider's specialty Patient had office visit in the last 12 months or has a visit in the next 30 days with authorizing provider or within the authorizing provider's specialty. See Patient Info tab in inbasket, or Choose Columns in Meds & Orders section of the refill encounter. Passed - Patient is age 18 or older Passed - Normal serum potassium on file in past 12 months Recent Labs Lab Test 06/23/17 0751 POTASSIUM 4.5 Navi Daley XRT documented in this encounter Plan of Treatment Not on file documented as of this encounter Visit Diagnoses Diagnosis Hypertension goal BP (blood pressure) < 140/90 Unspecified essential hypertension documented in this encounter Additional Health Concerns Assessment Noted Time PHQ-9 Depression Total Score: 1 11/13/19 16 7:14 AM CDT documented as of this encounter Care Teams Orthotist Prosthetist Relationship Specialty Start Date End Date Constantino Arredondo MD PCP - General Family Practice 10/26/13 12/29/21 [place] [address] [place] [address] PCP - Assigned PCP 11/06/13 05/04/18 No Ref-Primary, Physician PCP - General 10/21/24 [place] [address] [place] [address] Assigned PCP 11/06/13 07/20/21 documented as of this encounter
--- OUTSIDE RECORDS SUMMARY | 2024-12-13 10:45 | XMS_ITS | Clinical Summary ---
Author Organization 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
--- OUTSIDE RECORDS SUMMARY | 2024-12-13 10:45 | XMS_ITS | Encounter Summary ---
Author Organization [facility] Address [address] [place] [address] Care Team Providers Care Yardage Control Clerk Name Role Phone Constantino Arredondo MD Primary Care Provider + [phone] Constantino Arredondo MD Unavailable [phone] Constantino Arredondo MD Unavailable [phone] No Ref-Primary, Physician Primary Care Provider Encounter Details Date Type Department Care Team (Late st Contact Info) Description 07/14/2014 [facility] Medical Advice [address] [address] Matthew Worthy, CHILD DEVELOPMENT TEACHER Social History Tobacco Use Types Packs/Day Years Used Date Smoking Tobacco: Former Cigarettes 1 40 0 04/02/1969 - 04/02/2009 Smokeless Tobacco: Never Alcohol Use Standard Drinks/Week Comments No 0 (1 standard drink = 0.6 oz pur e alcohol) Sex and Gender Information Value Date Recorded Sex Assigned at Not on file 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 Gender Identity Not on file Sexual Orientation Not on file 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
--- OUTSIDE RECORDS SUMMARY | 2024-12-13 10:45 | XMS_ITS | Encounter Summary ---
Author Organization [facility] Address [address] [place] [address] Care Team Providers Care Director Fundraising Name Role Phone Robbie Velazquez MD Primary Care Provider Constantino Arredondo MD Primary Care Provider [phone] Constantino Arredondo MD Unavailable [phone] Constantino Arredondo MD Unavailable [phone] No Ref-Primary, Physician Primary Care Provider Encounter Details Date Type Department Care Team (Late st Contact Info) Description 05/19/2013 [facility] Medical Advice [address] [address] Robbie Velazquez MD [facility] [place] [address] Social History Tobacco Use Types Packs/Day Years Used Date Smoking Tobacco: Former Cigarettes Q uit: 04/02/2009 Smokeless Tobacco: Never Alcohol Use Standard Drinks/Week Comments No 0 (1 standard drink = 0.6 oz pur e alcohol) Sex and Gender Information Value Date Recorded Sex Assigned at Not on file 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 Gender Identity Not on file Sexual Orientation Not on file 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 Not on file Not on file documented as of this encounter Plan of Treatment Not on file documented as of this encounter Visit Diagnoses Not on filedocumented in this encounter Care Teams Director Fundraising Relationship Specialty Start Date End Date Robbie Velazquez MD PCP - General Family Practice 07/26/10 10/25/13 Constantino Arredondo MD PCP - General Family Practice 10/26/13 12/29/21 [place] [address] [place] [address] PCP - Assigned PCP 11/06/13 05/04/18 No Ref-Primary, Physician PCP - General 10/21/24 [place] [address] [place] [address] Assigned PCP 11/06/13 07/20/21 documented as of this encounter
--- NOTE | 2024-12-13 11:06 | CRLHL7_ITS ---
For Patients: As a result of the Cures Act, medical imaging exams and procedure reports are released immediately into your electronic medical record. You may view this report before your referring provider. If you have questions, please contact your health care provider. INDICATION: Chest pain. TECHNIQUE: Chest 2 views. COMPARISON: None. FINDINGS: Cardiovascular and mediastinum: Heart size and vasculature are normal in caliber and appearance. Lungs and pleural spaces: Bilateral calcified pleural plaques. No focal consolidation. No pleural effusion or pneumothorax. Calcified granuloma in the left lung base. Bones and soft tissues: Unremarkable for age. 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 Dictated by Benito Thurston MD @ 12/13/2024 11:38:56 AM (Electronically Signed)
--- NOTE | 2024-12-13 11:19 | ED.GENADULT ---
HPI - General Adult General Chief complaint: Chest Pain Stated complaint: Chest pain Time Seen by Provider: 12/13/24 10:58 Source: patient Mode of arrival: ambulatory Limitations: no limitations History of Present Illness HPI narrative: 79-year-old male presenting today with intermittent chest pain. Pain is located across the left chest and radiates across the center into the right lower chest. It occurs in the evening when he is sitting in his lazy Boy chair. He states that it occurs just about every day. It lasts 1-2 hours. It does not cause diaphoresis, dizziness, nausea or vomiting. Nothing really makes it better or worse. Patient does exercise 3 times per week. During his exercising he does not experience chest pain or excessive shortness of breath. He sleeps well at night. He denies unintentional weight loss or night sweats. No significant cough noted. No diarrhea. No abdominal discomfort. No changes in his appetite. Every now and then he gets a headache. Past medical history significant for hyperlipidemia and hypertension. Patient takes atorvastatin and lisinopril. Related Data Home Medications ?Medication ?Instructions ?Recorded ?Confirmed atorvastatin 20 mg tablet 20 mg PO DAILY 12/13/24 12/13/24 fluocinonide 0.05 % topical topical 12/13/24 ointment lisinopril 10 mg tablet 10 mg PO DAILY 12/13/24 12/13/24 tacrolimus 0.1 % topical ointment topical BID PRN 12/13/24 Allergies Allergy/AdvReac Type Severity Reaction Status Date / Time No Known Drug Allergies Allergy Verified 12/13/24 10:55 Review of Systems Status of ROS: Reports: 10 or more systems reviewed and unremarkable except as noted in History and below [facility] Social History Smoking Status: Never smoker How often do you have a drink containing alcohol: never AUDIT-C Alcohol total score: 0 Non-prescribed substance use: denies use service: No Exam Narrative: Exam Narrative: Well-nourished, thin, well-developed elderly patient in no acute distress. Alert and oriented. Answers questions appropriately. Mood and affect are appropriate. Thoughts are goal oriented and rational. No tangential or magical thinking noted. Patient speaks in full sentences without needing to catch his breath. Is in good spirits. HEENT: Normocephalic atraumatic. Pupils are equally round reactive to light. Extraocular muscles are intact. Conjunctivae are moist without any icterus noted. Moist mucous membranes. Neck is supple. Cardiovascular: Heart is regular rate and rhythm S1 and S2 are present with a 2/6 systolic murmur. Lungs: Clear to auscultation bilaterally no wheezes rhonchi or rales are appreciated. Patient takes deep breaths without any discomfort. Abdomen: Soft and nontender nondistended with normal bowel sounds. No guarding or rebound. Extremities: Bilateral lower extremities are without edema. Skin: Well perfused without any obvious rashes. Const: Vital Signs, click to edit/add: Vital Signs - 24 hr 12/13/24 10:44 Temperature 97.5 F L Pulse Rate [Pulse Oximeter] 64 Respiratory Rate 18 Blood Pressure [Ri ght Upper Arm] 170/67 H Pulse Oximetry 98 Oxygen Delivery Me thod Room Air Course Course ED Course: EKG, read by me, shows normal sinus rhythm with a pulse of 63. Normal QRS, QTC and CT intervals. D-dimer elevated 0.79. Using age adjusted D-dimer level this is not clinically significant. Blood work otherwise unremarkable. Chest x-ray showing pleural plaques consistent with asbestos exposure. While here patient did have a 5 beat run of ventricular tachycardia. Discussed case with Dr. Fischer, cardiology at [facility] who recommends 7 day Zio patch and follow-up outpatient. Of note, patient was asymptomatic during this event. He remained asymptomatic during his time here. Vital Signs Vital signs: Initial Vital Signs Temperature 97.5 F L 12/13/24 10:44 Temperature Source Temporal Artery Scan 12/13/24 10:44 Pulse Rate 64 12/13/24 10:44 Respiratory Rate 18 12/13/24 10:44 Blood Pressure 170/67 H 12/13/24 10:44 Blood Pressure Mean 101 12/13/24 10:44 Blood Pressure Position Sitting 12/13/24 10:44 Pulse Oximetry 98 12/13/24 10:44 Oxygen Delivery Method Room Air 12/13/24 10:44 Vital Signs Temperature 97.5 F L 12/13/24 10:44 Pulse Rate 64 12/13/24 10:44 Respiratory Rate 18 12/13/24 10:44 Blood Pressure 170/67 H 12/13/24 10:44 Pulse Oximetry 98 12/13/24 10:44 Oxygen Delivery Method Room Air 12/13/24 10:44 Temperature 97.5 F L 12/13/24 10:44 Pulse Rate 64 12/13/24 10:44 Respiratory Rate 18 12/13/24 10:44 Blood Pressure 170/67 H 12/13/24 10:44 Pulse Oximetry 98 12/13/24 10:44 Oxygen Delivery Method Room Air 12/13/24 10:44 Medical Decision Making MDM Narrative Medical decision making narrative: 79-year-old male with chest pain in the evenings for several weeks, unclear etiology. Five beat run of ventricular tachycardia. Patient will be discharged with a Zio patch and follow-up. Lab Data Lab results reviewed: Yes I reviewed the patient's lab results Labs: Lab Results 12/13/24 Range/Units 11:14 WBC 4.55 (4.50-11.00) K/uL RBC 4.61 (4.30-5.90) m/uL Hgb 13.7 (13.5-17.5) gm/dL Hct 42.6 (37.0-53.0) % MCV 92 (80-100) fL MCH 30 (26-34) pg MCHC 32 (32-36) gm/dL RDW Coeff of Cl 13.0 (11.5-15.5) % Plt Count 158 (140-440) K/uL Neut % (Auto) 62.7 (42.0-72.0) % Lymph % (Auto) 21.5 (20-44) % [place] % (Auto) 9.7 (0.0-11.0) % Eos % (Auto) 4.8 (0.0-7.0) % Baso % (Auto) 1.3 (0.0-3.0) % Neut # (Auto) 2.85 (1.7-7.0) K/uL Lymph # (Auto) 0.98 (0.90-2.90) K/uL [place] # (Auto) 0.40 (0.00-0.90) K/UL Eos # (Auto) 0.22 (0.00-0.50) K/uL Baso # (Auto) 0.06 (0.00-0.30) K/uL Abs Immat Gran (auto) 0.00 (0.00-0.30) K/uL Imm/Tot Granulo (auto) 0.0 % D-Dimer Quant (PE/DVT) 0.79 H (0.00-0.50) ug/ml Sodium 135 (135-149) mmol/L Potassium 4.3 (3.6-5.1) mmol/L Chloride 99 (96-114) mmol/L Carbon Dioxide 26 (20-32) mmol/L Anion Gap 10 (7-15) mEq/L BUN 23 (7-30) mg/dL Creatinine 1.4 (0.5-1.5) mg/dL Estimated Creat Clear 28.73 Estimated GFR 50 ml/min Glucose 87 (60-115) mg/dL Lactate 0.9 (0.5-1.9) mmol/L Calcium 9.8 (8.4-10.6) mg/dL Total Bilirubin 1.2 (0.1-1.5) mg/dL Direct Bilirubin 0.4 (0.0-0.5) mg/dL AST 32 (12-35) U/L ALT 17 (4-50) U/L Alkaline Phosphatase 62 (40-150) U/L Troponin I < 0.01 (0.01-0.04) ng/mL C-Reactive Protein < 0.5 L (0.5-1.0) mg/dL Total Protein 8.5 H (6.0-8.3) g/dL Albumin 4.7 (3.3-5.0) g/dL Lipase 90 (23-300) U/L Imaging Data Chest x-ray: Attestation: I have reviewed the pertinent imaging results. Radiologist's impression: TECHNIQUE: Chest 2 views. COMPARISON: None. FINDINGS: Cardiovascular and mediastinum: Heart size and vasculature are normal in caliber and appearance. Lungs and pleural spaces: Bilateral calcified pleural plaques. No focal consolidation. No pleural effusion or pneumothorax. Calcified granuloma in the left lung base. Bones and soft tissues: Unremarkable for age. 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 Discharge Plan Discharge Clinical Impression: Atypical chest pain, Ventricular tachycardia, non-sustained Patient Disposition: Home, Self-Care Condition: Stable Additional Instructions: Wear Zio patch for 7 days. Follow-up with your primary care provider to go over the results. Return to the emergency department if you develop worsening chest pain, palpitations, difficulty breathing. Prescriptions: No Action atorvastatin 20 mg tablet 20 mg PO DAILY fluocinonide 0.05 % ointment topical tacrolimus 0.1 % ointment topical BID PRN lisinopril 10 mg tablet 10 mg PO DAILY Follow Up/Referrals: Provider,Not a Local [Primary Care Provider, Family Practice] Stand Alone Forms: [employer] Info Instructions
[2024-12-13 11:20] LABS: Lactate* 0.9 mmol/L (0.5-1.9)
[2024-12-13 11:23] LABS: Hematocrit* 42.6 % (37.0-53.0); Hemoglobin* 13.7 gm/dL (13.5-17.5); Immature Granulocytes Abs Auto 0.00 K/uL (0.00-0.30); Immature Granulocytes Pct Auto 0.0 %; Lymphocytes Absolute Auto 0.98 K/uL (0.90-2.90); Mean Corpuscular HGB Conc 32 gm/dL (32-36); Mean Corpuscular Hemoglobin 30 pg (26-34); Mean Corpuscular Volume 92 fL (80-100); RDW Coefficient of Variation % 13.0 % (11.5-15.5); Red Blood Count* 4.61 m/uL (4.30-5.90); White Blood Count* 4.55 K/uL (4.50-11.00)
[2024-12-13 11:25] LABS: Slide Review Reflex No
[2024-12-13 11:39] LABS: Albumin* 4.7 g/dL (3.3-5.0); Chloride* 99 mmol/L (96-114); Sodium* 135 mmol/L (135-149)
[2024-12-13 11:40] LABS: Potassium* 4.3 mmol/L (3.6-5.1)
[2024-12-13 11:42] LABS: Alanine Aminotransferase* 17 U/L (4-50); Alkaline Phosphatase* 62 U/L (40-150); Anion Gap 10 mEq/L (7-15); Aspartate Amino Transferase* 32 U/L (12-35); Bilirubin Direct* 0.4 mg/dL (0.0-0.5); Bilirubin Total* 1.2 mg/dL (0.1-1.5); Blood Urea Nitrogen* 23 mg/dL (7-30); Carbon Dioxide* 26 mmol/L (20-32); Creatinine* 1.4 mg/dL (0.5-1.5); Est. Creatinine Clearance* 28.73; Estimated Glomerular Filt Rate 50 ml/min; Total Protein* 8.5 g/dL (6.0-8.3)
[2024-12-13 11:43] LABS: Calcium* 9.8 mg/dL (8.4-10.6); D Dimer Quantitative* 0.79 ug/ml (0.00-0.50); Glucose* 87 mg/dL (60-115)
--- NOTE | 2025-01-06 10:06 | ED.NURSE ---
Our Health Unit Coordinators contacted this patient and left two messages to call back regarding the need to make a follow up appointment with Dr. Billingsley to get his Holter Monitor results. Patient called back and spoke to [facility] today and [facility] transferred patient to the Clinic to make an appointment.
== END 2024-12-13 14:17 | disposition home or self-care (01) ==
PROVIDERS: Emergency Provider Family Medicine
DX: R07.89 Other chest pain (principal); I47.20 Ventricular tachycardia, unspecified
CPT/HCPCS: 36415; 71046; 80048; 80076; 83605; 83690; 84484; 85025; 85379; 86140; 93005; 93246; 99284